=== PATIENT | female | born 1945 | race Caucasian/White ===

== ENCOUNTER → 2017-09-12 12:41 | Outpatient (CLI) | payer MEDICARE, BC ==
[2015-06-03 07:54] VITALS: BMI 29.9
[~2017-09-12 12:41] MED LIST: ALEVE220 MG PO; CAPTOPRIL25 MG PO; COZAAR25 MG PO; CYMBALTA30 MG PO; DIABETA5 MG PO; ESTRACE 0.5 MG0.5 MG PO; ESTRACE1 MG PO; FLOVENT DI50 MCG/DIS INH; GLUCOPHAGE500 MG PO; LASIX20 MG PO; LOMOTIL TABLET1 TAB PO; METOPROLOL TAR100 M1 PO; PRILOSEC20 MG PO; SORINE80 MG PO; SYNTHROID100 MCG PO; VITAMIN B-12100 MCG PO; VYTORIN 10-40 M1 TAB PO; ZOCOR40 MG PO
== END | disposition home or self-care (01) ==
LOC: D.MRI 12:41
DX: S83.241A Other tear of medial meniscus, current injury, right knee, initial encounter (principal)

== ENCOUNTER → 2018-01-30 11:16 | Outpatient (CLI) | payer MEDICARE, BC ==
[2015-06-03 07:54] VITALS: BMI 29.9
== END | disposition home or self-care (01) ==
LOC: D.CT 11:16
DX: R06.02 Shortness of breath (principal); R07.9 Chest pain, unspecified

== ENCOUNTER 2018-01-30 12:14 | Emergency (ER) | payer MEDICARE, BC ==
[2015-06-03 07:54] VITALS: BMI 29.9
[2018-01-30 13:11] LABS: ALBUMIN 3.2 g/dL (3.4-5.0); ALKALINE PHOSPHATASE 79 U/L (46-116); ALT (SGPT) 30 U/L (10-68); BILIRUBIN - TOTAL 0.89 mg/dL (0.2-1.3); CALC OSMOLALITY 277 mosm/kg (275-300); CALCIUM 8.3 mg/dL (8.5-10.1); CARBON DIOXIDE 26.9 mmol/L (21.0-32.0); CHLORIDE - SERUM 103 mmol/L (98-107); CREATININE - SERUM 0.8 mg/dL (0.6-1.3); GLUCOSE 133 mg/dL (74-106); POTASSIUM - SERUM 3.9 mmol/L (3.5-5.1); PROTEIN - SERUM 7.5 g/dL (6.4-8.2); SODIUM 138 mmol/L (136-145); UREA NITROGEN 12 mg/dL (7-18); eGFR NON AFRICAN AMERICAN 75 mL/min (90-120)
[2018-01-30 13:19] LABS: BASOPHILS 0.1 % (0-2); EOSINOPHILS 0.3 % (0-7); HEMOGLOBIN 10.7 g/dL (12-16); IMMATURE GRANULOCYTES 0.3 % (0-5); LYMPHOCYTES 15.1 % (15-50); MCH 29.5 pg (26.0-34.0); MCHC 31.5 g/dL (31.0-37.0); MCV 93.7 fL (80.0-100.0); MEAN PLATELET VOLUME 10.2 fL (7.4-10.4); MONOCYTES 12.8 % (2-11); NEUTROPHILS 71.4 % (40-80); PLATELET COUNT 208 10x3/uL (130-400); RBC 3.63 10x6/uL (4.00-5.40); RDW 14.1 % (11.5-14.5); WBC 15.8 10x3/uL (4.8-10.8)
[2018-01-30 13:27] LABS: CKMB 0.9 U/L (0.0-3.6); CREATINE KINASE 71 UL (21-215)
[2018-01-30 13:58] LABS: CHOL - HDL RATIO 2.4 ratio (2.3-4.1); LDL-HDL RATIO 1.1 ratio (1.5-3.5)
== END 2018-01-30 17:58 | disposition home or self-care (01) ==
LOC: D.ER 12:14
PROVIDERS: Emergency Medicine
DX: R07.9 Chest pain, unspecified (principal)

== ENCOUNTER → 2018-02-04 10:56 | Outpatient (CLI) | payer MEDICARE, BC ==
[2015-06-03 07:54] VITALS: BMI 29.9
== END | disposition home or self-care (01) ==
LOC: D.US 10:56
DX: I73.9 Peripheral vascular disease, unspecified (principal)

== ENCOUNTER → 2018-02-11 12:18 | Outpatient (CLI) | payer MEDICARE, BC ==
[2015-06-03 07:54] VITALS: BMI 29.9
== END | disposition home or self-care (01) ==
LOC: D.CT 12:18
DX: I73.9 Peripheral vascular disease, unspecified (principal); R93.6 Abnormal findings on diagnostic imaging of limbs

== ENCOUNTER 2019-01-17 08:00 | Outpatient (CLI) | payer MEDICARE, BC ==
[2015-06-03 07:54] VITALS: BMI 29.9
== END 2019-01-17 09:00 | disposition home or self-care (01) ==
LOC: D.MAMMO 08:00
PROVIDERS: ATTEND Family Medicine
DX: Z12.31 Encounter for screening mammogram for malignant neoplasm of breast (principal)

== ENCOUNTER → 2019-01-22 13:59 | Outpatient (CLI) | payer MEDICARE, BC ==
[2015-06-03 07:54] VITALS: BMI 29.9
== END | disposition home or self-care (01) ==
LOC: D.CT 13:59
PROVIDERS: ATTEND Clinical Nurse Specialist Family Health
DX: M54.12 Radiculopathy, cervical region (principal)

== ENCOUNTER → 2019-02-05 08:20 | Outpatient (CLI) | payer MEDICARE, BC ==
[2015-06-03 07:54] VITALS: BMI 29.9
== END | disposition home or self-care (01) ==
LOC: D.MRI 08:20
PROVIDERS: ATTEND Clinical Nurse Specialist Family Health
DX: M25.511 Pain in right shoulder (principal)

== ENCOUNTER 2019-03-13 08:40 | Day surgery (SDC) | payer MEDICARE, BC ==
[2019-03-11 11:36] LABS: APTT 32.3 SECONDS (22.8-39.4); INR 0.96 (0.85-1.17); PROTIME 12.3 SECONDS (11.6-15.0)
[2019-03-11 11:37] LABS: ANION GAP 11.2 mmol/L (8-16); CALCIUM 8.8 mg/dL (8.5-10.1); CARBON DIOXIDE 28.6 mmol/L (21.0-32.0); CREATININE - SERUM 0.8 mg/dL (0.6-1.3); POTASSIUM - SERUM 3.8 mmol/L (3.5-5.1)
[2019-03-11 11:48] LABS: HEMOGLOBIN 11.9 g/dL (12-16); MCH 29.2 pg (26.0-34.0); MCHC 32.2 g/dL (31.0-37.0); MCV 90.7 fL (80.0-100.0); MEAN PLATELET VOLUME 9.9 fL (7.4-10.4); RBC 4.08 10x6/uL (4.00-5.40); RDW 14.5 % (11.5-14.5); WBC 6.5 10x3/uL (4.8-10.8)
[~2019-03-13] VITALS: Ht 162.6 cm; Wt 81.6 kg
[~2019-03-13 08:40] MED LIST changes: +BAYER CHEWABLE81 MG PO; +ELIQUIS5 MG PO; +GLIMEPIRIDE1 MG PO; +LIPITOR40 MG PO; +OMEPRAZOLE CAP 20M PO; +PIOGLITAZONE TAB 30M PO; +VITAMIN E600 UNIT PO
[2019-03-13] MEDS ORDERED: TYLENOL W/CODEI1 TAB PO (09:51)
[2019-03-13] MEDS ORDERED: FLUTICASONE PRO16 GM NASAL (09:53)
[2019-03-13 09:57] VITALS: BP 123/60; Ht 162.6 cm; Wt 81.6 kg
[2019-03-13] MEDS ORDERED: HYDROCODON-ACE1 EA10 PO (12:39)
--- NOTE | 2019-03-13 15:05 | NUR ---
DISCHARGED HOME VIA WHEELCHAIR TO PRIVATE VEHICLE WITH SPOUSE
--- NOTE | 2019-03-24 07:51 | OP ---
PATIENT NAME: MIKEY SCHUSTER MEDICAL RECORD: [id number] :47 LOCATION:[facility] ADMISSION DATE: SURGEON: ROSARIO RYDER MD DATE OF OPERATION: 03/13/2019 PREOPERATIVE DIAGNOSIS: Rotator cuff tear of the right shoulder with impingement syndrome. POSTOPERATIVE DIAGNOSES: 1. Rotator cuff tear of the right shoulder with impingement syndrome. 2. Severe biceps tendinitis. PROCEDURES: 1. Arthroscopic rotator cuff repair of the right shoulder. 2. Arthroscopic biceps tenotomy of the right shoulder. 3. Arthroscopic distal clavicle excision done through separate incision -- 1 cm. 4. Arthroscopic subacromial decompression, acromioplasty, and bursectomy. SURGEON: Rosario Ryder MD ANESTHESIA: General. INTRAOPERATIVE COMPLICATIONS: None. SUMMARY OF PATHOLOGIC FINDINGS: Consistent with the preoperative diagnosis, the patient had a full thickness rotator cuff tear; however, not adequately visualized on the MRI. The patient had severe biceps tendinitis with near complete tearing of the biceps tendon. Therefore, it was tenotomized and tenodesed. OPERATIVE SUMMARY IN DETAIL: After obtaining the appropriate preoperative orthopedic surgery consent as well as anesthetic consultation, evaluation and clearance, the patient was brought to the operating room and placed on the operating table in supine position. After adequate general laryngeal mask airway was administered, the patient was placed in left lateral decubitus position. All pressure points well padded to include down leg peroneal pad as well as axillary roll. The patient was held firmly to the operating room table using the vacuum pack suction system. The patient's right upper extremity and shoulder were then prepped and draped in routine sterile fashion. The arm was held in the Arthrex traction boom at 30 degrees of forward flexion, 30 degrees of abduction, 10 pounds of traction laterally. Arthroscopy was established in the glenohumeral joint from the posterior portal. Anterior portal was established in the anterior safe interval. Diagnostic arthroscopy revealed the above findings. A transarthroscopic rotator cuff portal was created for debridement of the articular aspect of the rotator cuff back to viable rotator cuff elements. [place] tissue ablation system was utilized to complete the biceps tenotomy at the bicipital labral junction. Attention was then turned to the subacromial space. While in the subacromial space, the [place] tissue ablation surgery used to denude the undersurface of the acromion of all soft tissue elements and release the coracoacromial ligament. A 5-0 barrel bur was then used for acromioplasty at the level of the acromioclavicular joint and through a separate anterior portal under direct arthroscopic visualization, distal clavicle was excised for 1 cm. Attention was then returned to the rotator cuff and a single inverted #2 FiberTape was placed into the rotator cuff OPERATIVE REPORT [id number] MARIELYMIKEY LENA tear and anchored laterally with a 5.5 SwiveLock from Arthrex. Having completed this, arthroscopy portals were closed in routine interrupted fashion using 4-0 Prolene. Sterile dressings were applied. The patient was awakened and taken to recovery room in stable condition. All final needle and sponge counts were correct. TRANSINT:[id number] Voice Confirmation ID: [id number] DOCUMENT ID: [id number] BRITNI LOMBARDI, ROSARIO WING at 0751 CC: [id number] DICTATION DATE: 03/21/19 1211 DYE HOUSE VAT WORKER: 03/21/19 1548 [facility] 03/13/19 [facility] [address] [place] [address]
== END 2019-03-13 15:05 | disposition home or self-care (01) ==
LOC: D.OPS 08:40 → D.PAN 09:30 → D.OPS 10:45 → D.PAN 11:05 → D.OPS 11:05
PROVIDERS: Anesthesiology; ATTEND Orthopaedic Surgery
DX: M75.101 Unspecified rotator cuff tear or rupture of right shoulder, not specified as traumatic (principal); M75.41 Impingement syndrome of right shoulder; M75.21 Bicipital tendinitis, right shoulder

== ENCOUNTER → 2019-04-10 12:54 | Outpatient (CLI) | payer MEDICARE, BC ==
[2019-03-13 09:57] VITALS: BMI 30.9
[~2019-04-10 12:54] MED LIST changes: +FLUTICASONE PRO16 GM NASAL; +HYDROCODON-ACE1 EA10 PO; +TYLENOL W/CODEI1 TAB PO
== END | disposition home or self-care (01) ==
LOC: D.HCCARDIO 12:54
PROVIDERS: ATTEND Internal Medicine Cardiovascular Disease
DX: I34.0 Nonrheumatic mitral (valve) insufficiency (principal)

== ENCOUNTER 2019-05-29 14:39 | Inpatient (IN) | payer MEDICARE, BC ==
[~2019-05-29] VITALS: Ht 162.6 cm; Wt 81.6 kg
[2019-06-17] MEDS ORDERED: CIPRO250 MG PO (16:25)
[2019-06-18 13:03] LABS: BASOPHILS 0.1 % (0-2); EOSINOPHILS 1.5 % (0-7); HEMATOCRIT 35.4 % (36.0-48.0); HEMOGLOBIN 11.4 g/dL (12-16); IMMATURE GRANULOCYTES 0.1 % (0-5); LYMPHOCYTES 19.4 % (15-50); MCH 28.9 pg (26.0-34.0); MCHC 32.2 g/dL (31.0-37.0); MCV 89.6 fL (80.0-100.0); MEAN PLATELET VOLUME 9.2 fL (7.4-10.4); MONOCYTES 10.1 % (2-11); NEUTROPHILS 68.8 % (40-80); PLATELET COUNT 224 10x3/uL (130-400); RBC 3.95 10x6/uL (4.00-5.40); RDW 14.6 % (11.5-14.5); WBC 8.5 10x3/uL (4.8-10.8)
[2019-06-18 13:10] LABS: ANION GAP 12.4 mmol/L (8-16); CALCIUM 9.2 mg/dL (8.5-10.1); CARBON DIOXIDE 29.2 mmol/L (21.0-32.0); CREATININE - SERUM 0.9 mg/dL (0.6-1.3); POTASSIUM - SERUM 3.6 mmol/L (3.5-5.1)
[2019-06-18 13:17] LABS: APTT 34.1 SECONDS (22.8-39.4); INR 1.09 (0.85-1.17); PROTIME 13.6 SECONDS (11.6-15.0)
[2019-06-18 13:52] LABS: APPEARANCE CLEAR (CLEAR); BACTERIA FEW /hpf (NONE SEEN); BILIRUBIN NEGATIVE (NEGATIVE); COLOR STRAW (YELLOW); EPITHELIAL CELLS 0-5 /hpf (0-5); GLUCOSE NEGATIVE (NEGATIVE); KETONE NEGATIVE (NEGATIVE); NITRITE NEGATIVE (NEGATIVE); PROTEIN TRACE mg/dL (NEGATIVE); RED CELLS - URINE 0-5 /hpf (0-5); SPECIFIC GRAVITY 1.005 (1.005-1.020); UROBILINOGEN NORMAL (NORMAL); WHITE CELLS - URINE RARE /hpf (0-5)
[2019-06-23] VITALS (13 sets, daily range): BP systolic 64–131; BP diastolic 49–75; BMI 30.9
[2019-06-23 09:36] LABS: APPEARANCE HAZY (CLEAR); BILIRUBIN NEGATIVE (NEGATIVE); COLOR YELLOW (YELLOW); GLUCOSE NEGATIVE (NEGATIVE); KETONE NEGATIVE (NEGATIVE); NITRITE NEGATIVE (NEGATIVE); PROTEIN TRACE mg/dL (NEGATIVE); SPECIFIC GRAVITY 1.015 (1.005-1.020); UROBILINOGEN NORMAL (NORMAL)
[2019-06-23 09:37] LABS: BACTERIA FEW /hpf (NONE SEEN); EPITHELIAL CELLS 0-5 /hpf (0-5); HYALINE CAST RARE /lpf (NONE SEEN); MUCUS <1+ /lpf (NONE SEEN); RED CELLS - URINE 0-5 /hpf (0-5); WHITE CELLS - URINE OCC /hpf (0-5)
--- NOTE | 2019-06-23 09:52 | NUR ---
PLASMA BLADE SET TO 6/8 BOVIE PAD RIGHT FLANK [id number] EXP 09/01/20 PREPPED RIGHT LEG FROM TOURNIQUET TO TOES CIRCUMFERENTIALLY WITH HIBICLENS AND THEN CHLORAPREP
--- NOTE | 2019-06-23 13:59 | NUR ---
PULSE IN RLE IS BOUNDING. PATIENT REQUESTED AND RECEIVED A REG COKE. SHE DID NOT WAKE UP TO EAT SO I ALLOWED. PILLOW PLACED BEHIND LEFT LOWER BACK FOR COMFORT. DIL IN ROOM. CL IN REACH [facility]
--- NOTE | 2019-06-23 14:33 | NUR ---
IS DAVID SCHUSTER THE DAUGHTER IN LAW'S PHONE NUMBER. SAID THEY ARE NEIGHBORS AND TO CALL IF WE NEEDED THEM. CL IN REACH [facility].
--- NOTE | 2019-06-23 17:37 | NUR ---
ATTEMPTED TO GET DRAKE CARLSON FROM CENTRAL SUPPLY. CALF SIZE 16.5/LEG 20 IN. SCD'S ON. CL IN REACH. FAMILY IN ROOM. NO FURTHER NEEDS
--- NOTE | 2019-06-23 22:45 | NUR ---
BP 118/55 IN&OUT CATH DRAINED 800ML CLEAR, YELLOW URINE. PT REPORTS RELIEF. INFORMED SHE NEEDS TO VOID IN THE NEXT 6-8 HOURS. PT VERBALIZED UNDERSTANDING. WILL CONTINUE TO MONITOR.
[2019-06-24] VITALS: BP 107/45
[2019-06-24 06:06] LABS: HEMATOCRIT 28.7 % (36.0-48.0); MCH 28.3 pg (26.0-34.0); MCHC 31.4 g/dL (31.0-37.0); MCV 90.3 fL (80.0-100.0); MEAN PLATELET VOLUME 9.1 fL (7.4-10.4); RBC 3.18 10x6/uL (4.00-5.40); RDW 15.1 % (11.5-14.5); WBC 7.7 10x3/uL (4.8-10.8)
--- NOTE | 2019-06-24 07:00 | NUR ---
PT VOIDED IN BEDPAN W/O DIFICULTY. CPM IN USE. PAIN 04/14. WILL CONTINUE TO MONITOR.
[2019-06-24 09:38] VITALS: BP 102/45
[2019-06-24 09:40] VITALS: Ht 162.6 cm; Wt 81.6 kg
[2019-06-24 12:11] VITALS: BP 99/35
[2019-06-24 16:51] VITALS: BP 114/38
[2019-06-24 20:00] VITALS: BP 137/54
--- NOTE | 2019-06-24 20:30 | NUR ---
PT REQUESTS BEING REMOVED FROM CPM 1HOUR EARLY TO GO TO BATHROOM. PT AMBULATED TO RESTROOM WITH WALKER, MIN ASSIST. REPORTS PAIN AND NAUSEA AT THIS TIME. VOIDED CLEAR, YELLOW URINE. ASSISTED BACK TO BED, SCD AND PLEXI BOOT IN USE. ALSO REPORTS SHE FEELS LIKE SHE IS EXPERIENCING SOME ACID REFLUX. GIVEN SALTINE CRACKERS. DENIES FURTHER NEEDS AT THIS TIME, WILL CONTINUE TO MONITOR.
[2019-06-24 23:35] VITALS: BP 140/67
[2019-06-25] VITALS: BP 140/67
--- NOTE | 2019-06-25 02:28 | NUR ---
I have reviewed this patient and I concur with the Shift Assessment completed by the Licensed Practical Nurse today this shift.
[2019-06-25 04:00] VITALS: BP 143/53
[2019-06-25 06:17] LABS: HEMATOCRIT 25.9 % (36.0-48.0); HEMOGLOBIN 8.4 g/dL (12-16); MCH 28.6 pg (26.0-34.0); MCHC 32.4 g/dL (31.0-37.0); MEAN PLATELET VOLUME 9.3 fL (7.4-10.4); RBC 2.94 10x6/uL (4.00-5.40); RDW 15.2 % (11.5-14.5)
[2019-06-25 06:25] LABS: MCV 88.1 fL (80.0-100.0); WBC 10.8 10x3/uL (4.8-10.8)
[2019-06-25 08:30] VITALS: BP 136/49
[2019-06-25 12:45] VITALS: BP 127/58
--- NOTE | 2019-06-25 14:23 | NUR ---
PATIENT IS C/O PAIN, SHE STATES IT IS HER KNEE AND RIGHT ABOVE THE KNEE IS HURTING, SHE STATED THAT THE PAIN MEDICINE IS ONLY LASTING ABOUT 2 HOURS. WENT OVER MAR WITH HER AND SHE IS REQUESTING TORADOL, SPOKE WITH ANAMIKA ALVARENGA ABOUT IT. SANDRA ALVARENGA GAVE TORADOL VIA IV AND I HAVE NOTIFIED BRANDON BALDRERAMA TO MAKE HER AWARE.
--- NOTE | 2019-06-25 14:34 | MORECARE ---
CASE MANAGEMENT DISCHARGE SUMMARY PATIENT: MIKEY SCHUSTER UNIT: [id number] ADM DATE: 06/23/19 AGE: 73 : 46 SEX: F ROOM/BED: D.2212 AUTHOR: JADE DOBBS PHYSICIAN: REFERRING PHYSICIAN: ROSARIO RYDER MD DATE OF SERVICE: 06/25/19 Discharge Plan Patient Name: MIKEY SCHUSTER [facility] [facility] 1945 Planned Disposition: Home or Self Care Anticipated Discharge Date: Discharge Date: Expected LOS: Initial Reviewer: [email or web address] Initial Review Date: 06/23/2019 Generated: 06/25/19 3:34 pm DCPIA - Discharge Planning Initial Assessment Updated by [email or web address]: Julianne Mckay on 06/25/19 2:32 pm * Is the patient Alert and Oriented? Yes * How many steps to enter\exit or inside your home? * PCP ALONA * Pharmacy [facility] * Preadmission Environment Home with Family * ADLs Independent * Equipment Rolling Walker * List name and contact numbers for known caregivers / representatives who currently or will assist patient after discharge: LILLIAN () [phone] * Verbal permission to speak to the caregivers and representatives has been obtained from the patient. N/A * Community resources currently utilized None * Additional services required to return to the preadmission environment? Yes * Can the patient safely return to the preadmission environment? Yes * Has this patient been hospitalized within the prior 30 days at any hospital? No Patient Name: MIKEY SCHUSTER Page 31607 at 1434 All edits/amendments must be made on the electronic document DICTATION DATE: 06/25/19 1433 RADIO DISC JOCKEY: IZA 06/25/19 1433 RPT#: [id number] DC DATE: STATUS: ADM IN [facility] [address] [place] [address] END OF REPORT
--- NOTE | 2019-06-25 14:44 | MORECARE ---
CASE MANAGEMENT DISCHARGE SUMMARY PATIENT: MIKEY SCHUSTER UNIT: [id number] ADM DATE: 06/23/19 AGE: 73 : 46 SEX: F ROOM/BED: D.2212 AUTHOR: JADE DOBBS PHYSICIAN: REFERRING PHYSICIAN: ROSARIO RYDER MD DATE OF SERVICE: 06/25/19 Discharge Plan Patient Name: MIKEY SCHUSTER Facility: [facility]:[place] : 1945 Planned Disposition: Home or Self Care Anticipated Discharge Date: Discharge Date: Expected LOS: Initial Reviewer: [email or web address] Initial Review Date: 06/23/2019 Generated: 06/25/19 3:44 pm Comments DCP- Discharge Planning Updated by [email or web address]: Julainne Mckay on 06/25/19 1:[address] IMM was given and explained. DCP- Discharge Planning Updated by [email or web address]: Julianne Mckay on 06/25/19 1:[address] Patient Name: MIKEY SCHUSTER Admission Status: Elective Accout number: [id number] Admission Date: 06-23-2019 : 1945 Admission Diagnosis: Attending: ROSARIO RYDER Current LOS: 2 Anticipated DC Date: Planned Disposition: Home or Self Care Primary Insurance: MEDICARE A & B Discharge Planning Comments: CM met with patient to complete initial dc planning assessment. CM educated patient on the CM role and verbal consent given by patient to complete assessment. Patient lives at home with her where she is independent with her care . At discharge patient plans to return home and feels this is a safe discharge. CM discussed availability of home health, rehab services, and medical equipment. She has a walker, but will need a CPM, I will call dr Shearer office to see where the order has been placed. She would like to do OP PT at [facility] at Dr Helm's office. I have called and spoke with Amari, OP PT was made for SundayJun 12 at 3:00pm. Patient denied known discharge needs at this time. CM will continue to follow and will assist as needed with dc plans/needs. Windshield Repair Technician: Julianne Mckay DCPIA - Discharge Planning Initial Assessment Updated by [email or web address]: Julianne Mckay on 06/25/19 2:32 pm * Is the patient Alert and Oriented? Yes * How many steps to enter\exit or inside your home? * PCP ALONA * Pharmacy [facility] * Preadmission Environment Home with Family * ADLs Independent * Equipment Rolling Walker * List name and contact numbers for known caregivers / representatives who currently or will assist patient after discharge: LILLIAN () [phone] * Verbal permission to speak to the caregivers and representatives has been obtained from the patient. N/A * Community resources currently utilized None * Additional services required to return to the preadmission environment? Yes * Can the patient safely return to the preadmission environment? Yes * Has this patient been hospitalized within the prior 30 days at any hospital? No Last DP export: 06/25/19 1:34 p Patient Name: MIKEY SCHUSTER Page [phone] at 1444 All edits/amendments must be made on the electronic document DICTATION DATE: 06/25/191443 FOOT DOCTOR: IZA 06/25/191443 RPT#: [id number] DC DATE: STATUS: ADM IN [facility] [address] [place] [address] END OF REPORT
[2019-06-25 16:00] VITALS: BP 110/64
[2019-06-25 20:00] VITALS: BP 126/54
--- NOTE | 2019-06-25 20:15 | NUR ---
A/O X4 WITH NO ACUTE DISTRESS NOTED. ASSISTED TO BATHROOM AND REPOSITIONED IN BED. DENIES PAIN OR OTHER NEEDS AT THIS TIME. CONTINUE WITH PLAN OF CARE.
[2019-06-26 04:00] VITALS: BP 127/49
[2019-06-26 06:03] LABS: HEMATOCRIT 25.3 % (36.0-48.0); HEMOGLOBIN 8.2 g/dL (12-16); MCH 28.7 pg (26.0-34.0); MCHC 32.4 g/dL (31.0-37.0); MCV 88.5 fL (80.0-100.0); MEAN PLATELET VOLUME 9.4 fL (7.4-10.4); RBC 2.86 10x6/uL (4.00-5.40); RDW 15.2 % (11.5-14.5)
[2019-06-26 06:11] LABS: WBC 7.9 10x3/uL (4.8-10.8)
--- NOTE | 2019-06-26 07:15 | NUR ---
ALERT AND ORIENTED, RESTING IN BED. NO C/O PAIN. NO S/S OF ACUTE DISTRESS NOTED. PT DENIES ANY NEEDS. CALL LIGHT IN REACH. WILL CONTINUE TO MONITOR.
[2019-06-26 08:38] VITALS: BP 146/56
[2019-06-26 11:58] VITALS: BP 144/61
--- NOTE | 2019-06-26 12:34 | NUR ---
NUTRITION F/U 50% INTAKE BREAKFAST. PT UP TO CHAIR. MIRALAX ADDED 2/[address] FOLLOWING
--- NOTE | 2019-06-26 12:49 | OP ---
PATIENT NAME: MIKEY SCHUSTER MEDICAL RECORD: [id number] :47 LOCATION:[id number] ADMISSION DATE:06/23/19 SURGEON: ROSARIO RYDER MD DATE OF OPERATION: 06/23/2019 PREOPERATIVE DIAGNOSIS: Degenerative arthritis, right knee. POSTOPERATIVE DIAGNOSIS: Degenerative arthritis, right knee. PROCEDURE: Right total knee arthroplasty. SURGEON: Rosario Ryder MD CREW CLERK: NICHOL Gregory ANESTHESIA: General. INTRAOPERATIVE COMPLICATIONS: None. SUMMARY OF PATHOLOGIC FINDINGS: The patient had substantial osteoarthritis with all 3 compartments consistent with the preoperative radiographs. IMPLANTS USED: [place] Triathlon cemented total knee arthroplasty, size 4 femur, size 4 tibial baseplate, size 9-mm polyethylene insert and a 31 x 9 symmetric patella. OPERATIVE SUMMARY IN DETAIL: After obtaining the appropriate preoperative orthopedic surgery consent as well as anesthetic consultation, evaluation and clearance, the patient was brought to the operating room and placed on the operating table in supine position. After general laryngeal mask airway was administered, tourniquet was placed on the proximal aspect of the right lower extremity. Right lower extremity was then prepped and draped in routine sterile fashion. The leg was elevated and exsanguinated. Tourniquet was inflated to 350 mmHg. Midline incision was taken down for paramedian arthrotomy. Patella was everted, distal femur was exposed and the soft tissue excision was done in the usual fashion. An intramedullary guide hole was created for intramedullary guided cuts. Having completed this, the proximal tibia was completely exposed and soft tissue excision was then followed by creation of intramedullary guide hole for intramedullary guided cut of the proximal tibia. Having completed this, the appropriate measurements were taken. Distal chamfer cuts on the distal femur were made. Trials were put into place corresponding to the above implants, taken through range of motion and found to be stable in all planes. Final distal femoral preparations were followed by final proximal tibial preparations and then the arthritic surface of the patella was excised and prepared for resurfacing. The knee was then lavaged in pulsatile fashion to rid the capsule of all debris. Bone ends were then dried. Final components were cemented in place. All excess cement was removed and cement was allowed to harden. The knee was taken through range of motion and found to be stable in all planes, including patellofemoral tracking as well as medial or lateral anterior posterior stability. At this point, a gram of vancomycin, a gram and tobramycin were placed in the knee. Paramedian arthrotomy was then closed by Yariel Wiley with #1 Ethibond followed by #1 Vicryl, 2-0 Vicryl, and skin antonio. Sterile dressings were applied. Tourniquet was deflated. The patient was awakened and taken to the recovery room in stable condition. All final needle and sponge counts were correct. OPERATIVE REPORT [id number] MIKEY SCHUSTER TRANSINT:[id number] Voice Confirmation ID: [id number] DOCUMENT ID: [id number] BRITNI OLMBARDI, ROSARIO WING at 1249 CC: [id number] DICTATION DATE: 06/26/19 1113 SILVICULTURE TEACHER: 06/26/19 1230 ADM IN [place] [id number] [place] [id number]
[2019-06-26] MEDS ORDERED: HYDROCODON-ACE1 EA10 PO (16:09)
[2019-06-26 16:34] VITALS: BP 119/48
--- NOTE | 2019-06-26 17:26 | NUR ---
PT DISCHARGED HOME VIA WHEELCHAIR WITH SPOUSE. DISCONTINUED IV, CATHETER TIP INTACT. WENT OVER DISCHARGE INSTRUCTIONS WITH PATIENT, PATIENT VERBALIZED UNDERSTANDING. CHANGED DRESSING ON RIGHT KNEE WITH AQUACEL PER PHYSICIAN ORDERS. PT DENIES ANY NEEDS.
--- NOTE | 2019-06-30 12:08 | MORECARE ---
CASE MANAGEMENT DISCHARGE SUMMARY PATIENT: MIKEY SCHUSTER UNIT: [id number] ADM DATE: 06/23/19 AGE: 73 : 46 SEX: F ROOM/BED: D.2212 AUTHOR: DILIA,DOC PHYSICIAN: REFERRING PHYSICIAN: ROSARIO RYDER MD DATE OF SERVICE: 06/30/19 Discharge Plan Patient Name: MIKEY SCHUSTER Facility: [facility]:[place] : 1945 Planned Disposition: Home or Self Care Anticipated Discharge Date: Discharge Date: 06/26/2019 Expected LOS: Initial Reviewer: [email or web address] Initial Review Date: 06/23/2019 Generated: 06/30/19 1:08 pm DCP- Discharge Planning Updated by [email or web address]: Julianne Mckay on 06/25/19 1:[address] IMM was given and explained. DCP- Discharge Planning Updated by [email or web address]: Julianne Mckay on 06/25/19 1:[address] Patient Name: MIKEY SCHUSTER Admission Status: Elective Accout number: [id number] Admission Date: 06-23-2019 : 1945 Admission Diagnosis: Attending: ROSARIO RYDER Current LOS: 2 Anticipated DC Date: Planned Disposition: Home or Self Care Primary Insurance: MEDICARE A & B Discharge Planning Comments: CM met with patient to complete initial dc planning assessment. CM educated patient on the CM role and verbal consent given by patient to complete assessment. Patient lives at home with her where she is independent with her care . At discharge patient plans to return home and feels this is a safe discharge. CM discussed availability of home health, rehab services, and medical equipment. She has a walker, but will need a CPM, I will call dr Shearer office to see where the order has been placed. She would like to do OP PT at [facility] at Dr Helm's office. I have called and spoke with Amari, OP PT was made for SundayJun 12 at 3:00pm. Patient denied known discharge needs at this time. CM will continue to follow and will assist as needed with dc plans/needs. Production Operator: Julianne Mckay DCPIA - Discharge Planning Initial Assessment Updated by [email or web address]: Julianne Mckay on 06/25/19 2:32 pm * Is the patient Alert and Oriented? Yes * How many steps to enter\exit or inside your home? * PCP AL[facility] * Pharmacy [place] * Preadmission Environment Home with Family * ADLs Independent * Equipment Rolling Walker * List name and contact numbers for known caregivers / representatives who currently or will assist patient after discharge: LILLIAN () [phone] * Verbal permission to speak to the caregivers and representatives has been obtained from the patient. N/A * Community resources currently utilized None * Additional services required to return to the preadmission environment? Yes * Can the patient safely return to the preadmission environment? Yes * Has this patient been hospitalized within the prior 30 days at any hospital? No Coverage Notice Reviewer: [email or web address] - Julianne Mckay Notice Issued Date-Time: 06/25/2019 14:00 Notice Type: IM Discharge Notice Notice Delivered To: Patient Relationship to Patient: Echocardiography Tech Name: Delivery Method: HAND - Hand Delivered Naomi Days: Prior Verbal Notification: Recipient Understood Notice: Yes Recipient Signature: Yes Med Rec Note Co-signed by Attending: Coverage Notice Comment: Last DP export: 06/25/19 1:44 p Patient Name: MIKEY SCHUSTER Page 31526 at 1208 All edits/amendments must be made on the electronic document DICTATION DATE: 06/30/19 1208 WINDOW/DISTRIBUTION CLERK: ZIA 06/30/19 1208 RPT#: [id number] DC DATE:06/26/19 STATUS: DIS IN [facility] [address] [place] [address] END OF REPORT
== END 2019-06-26 17:28 | disposition home or self-care (01) | DRG 470 ==
LOC: D.SDCHOLD 06-18 10:00 → D.MS 06-23 07:38 → D.SDCHOLD 06-23 09:15 → D.MS 06-23 10:41
PROVIDERS: ADMIT Orthopaedic Surgery; ATTEND Orthopaedic Surgery
PROC: 0SRC0J9 Replacement of Right Knee Joint with Synthetic Substitute, Cemented, Open Approach (ICD-10-PCS; principal; 2019-06-23 09:30)
DX: M17.11 Unilateral primary osteoarthritis, right knee (principal); D62 Acute posthemorrhagic anemia; E11.9 Type 2 diabetes mellitus without complications; E78.5 Hyperlipidemia, unspecified; I48.91 Unspecified atrial fibrillation

== ENCOUNTER → 2019-06-05 17:46 | Outpatient (CLI) | payer MEDICARE, BC ==
[2019-03-13 09:57] VITALS: BMI 30.9
== END | disposition home or self-care (01) ==
LOC: D.LABREF 17:46
PROVIDERS: ATTEND Orthopaedic Surgery
DX: M17.11 Unilateral primary osteoarthritis, right knee (principal)

== ENCOUNTER 2019-07-11 20:25 | Inpatient (IN) | payer MEDICARE, BC ==
[~2019-07-11] VITALS: Ht 162.6 cm; Wt 78.5 kg
[~2019-07-11 20:25] MED LIST changes: +CIPRO250 MG PO
[2019-07-11 22:24] LABS: BASOPHILS 0.1 % (0-2); EOSINOPHILS 0.1 % (0-7); HEMATOCRIT 28.9 % (36.0-48.0); HEMOGLOBIN 9.3 g/dL (12-16); IMMATURE GRANULOCYTES 0.3 % (0-5); LYMPHOCYTES 5.3 % (15-50); MCH 28.2 pg (26.0-34.0); MCHC 32.2 g/dL (31.0-37.0); MCV 87.6 fL (80.0-100.0); MEAN PLATELET VOLUME 9.9 fL (7.4-10.4); MONOCYTES 7.3 % (2-11); NEUTROPHILS 86.9 % (40-80); PLATELET COUNT 230 10x3/uL (130-400); RDW 16.3 % (11.5-14.5); WBC 15.7 10x3/uL (4.8-10.8)
[2019-07-11 22:33] VITALS: BP 123/57; BMI 29.7
[2019-07-11 22:43] LABS: ALBUMIN 3.1 g/dL (3.4-5.0); ANION GAP 15.5 mmol/L (8-16); BILIRUBIN - TOTAL 0.32 mg/dL (0.2-1.3); C-REACTIVE PROTEIN 1.1 mg/dL (0.0-0.9); CALCIUM 8.5 mg/dL (8.5-10.1); CARBON DIOXIDE 27.2 mmol/L (21.0-32.0); CREATININE - SERUM 1.1 mg/dL (0.6-1.3); POTASSIUM - SERUM 3.7 mmol/L (3.5-5.1); PROTEIN - SERUM 7.1 g/dL (6.4-8.2)
[2019-07-12 04:00] VITALS: BP 137/50
--- NOTE | 2019-07-12 07:02 | NUR ---
PATIENT PAIN NOT RELIEVED AND NOT IMPROVING WITH MORPHINE SPECIALTIES OPERATOR. PAGED DR. RYDER.
[2019-07-12 08:13] VITALS: BP 123/49
[2019-07-12 08:40] LABS: HEMATOCRIT 28.7 % (36.0-48.0); HEMOGLOBIN 9.2 g/dL (12-16); MCH 28.7 pg (26.0-34.0); MCHC 32.1 g/dL (31.0-37.0); MCV 89.4 fL (80.0-100.0); MEAN PLATELET VOLUME 9.1 fL (7.4-10.4); PLATELET COUNT 377 10x3/uL (130-400); RBC 3.21 10x6/uL (4.00-5.40); RDW 16.4 % (11.5-14.5); WBC 9.4 10x3/uL (4.8-10.8)
--- NOTE | 2019-07-12 08:40 | NUR ---
PATIENT GIVEN TORADOL ORDERED BY PHYSICIAN FOR PAIN. IV INTACT. NO COMPLAINTS OR OR SIGNS OF DISTRESS. CALL LIGHT WITHIN REACH.
[2019-07-12 08:46] LABS: ANION GAP 10.7 mmol/L (8-16); CALCIUM 8.8 mg/dL (8.5-10.1); CREATININE - SERUM 0.9 mg/dL (0.6-1.3); POTASSIUM - SERUM 3.7 mmol/L (3.5-5.1)
[2019-07-12 09:43] LABS: ERYTHROCYTE SEDIMENTATION RATE 57 mm/hr (0-30)
[2019-07-12 11:38] VITALS: Ht 162.6 cm; Wt 78.5 kg
--- NOTE | 2019-07-12 12:00 | NUR ---
PATIENT IN BED WITH NO COMPLAINTS. IV INTACT. NO COMPLAINTS CALL LIGHT WITHIN REACH.
[2019-07-12 13:21] VITALS: BP 110/50
[2019-07-12 16:11] VITALS: BP 116/39
[2019-07-12 16:41] LABS: APPEARANCE CLEAR (CLEAR); BILIRUBIN NEGATIVE (NEGATIVE); COLOR YELLOW (YELLOW); GLUCOSE NEGATIVE (NEGATIVE); KETONE NEGATIVE (NEGATIVE); NITRITE NEGATIVE (NEGATIVE); PROTEIN NEGATIVE (NEGATIVE); SPECIFIC GRAVITY 1.015 (1.005-1.020); UROBILINOGEN NORMAL (NORMAL)
[2019-07-12 16:43] LABS: BACTERIA FEW /hpf (NONE SEEN); EPITHELIAL CELLS 0-5 /hpf (0-5); RED CELLS - URINE 0-5 /hpf (0-5)
--- NOTE | 2019-07-12 16:50 | NUR ---
PATIENT RECIEVED 1/2 OF 1ST ENEMA. NO RESULTS AT THIS TIME. CLEAR WATER CAME OUT INTO BED MELENDEZ. EXPLAINED TO PATIENT THAT IF HE WASNTS TO WE CAN TRY AGAIN. VERBALIZED UNDERSTANDING. STATED HE WOULD LET MED KNOW.
--- NOTE | 2019-07-12 18:50 | NUR ---
PATIENT IN BED ON PHONE AT THIS TIME. IV INTACT. NO COMPLAINTS OR SIGNS OF DISTRESS. CALL LIGHT WITHIN REACH.
[2019-07-12 19:55] VITALS: BP 113/44
--- NOTE | 2019-07-12 19:58 | NUR ---
PATIENT IN BED RESTING WITH NO STATED OR NOTED NEEDS CALL LIGHT AND WATER IN REACH. ALERT AND ORENTED ABLE TO VOICE NEEES AND WANTS TO STAFF. MORPHINE AUTOMATED EQUIPMENT ENGINEER TECHNICIAN IN PLACE. IV TO LEFT HAND WITH NS. ON ROOM AIR.
[2019-07-13] VITALS (7 sets, daily range): BP systolic 102–133; BP diastolic 40–51
--- NOTE | 2019-07-13 06:34 | NUR ---
PATIENT REFUSED ENEMA X 2 THIS SHIFT
--- NOTE | 2019-07-13 08:45 | NUR ---
PATIENT IN BED WITH IV INTACT. SITTING UP IN BED WITH NO COMPLAINTS. CALL LIGHT WITHIN REACH.
--- NOTE | 2019-07-13 18:45 | NUR ---
PATIENT SITTING UP IN BED WITH FAMILY AT BEDSIDE. IV INTACT. NO COMPLAINTS. CALL LIGHT WITHIN REACH.
--- NOTE | 2019-07-13 20:00 | NUR ---
ALERT AND ORENTED ABLE TO VOICE NEEDS AND WANTS TO STAFF. CALL LIGHT AND WATER IN REACH. UP AT JAYA DRESSING TO RIGHT KNEE IN PLACE. LEFT FR WITH NS AT [address] PATEN. NO NEEDS NOTED OR STATED
[2019-07-14 04:00] VITALS: BP 117/43
--- NOTE | 2019-07-14 07:15 | NUR ---
AWAKE AND ALERT. ORIENTED X3. NO C/O AT THIS TIME. REPORTS PAIN IMPROVED WITH USE OF UNIT SUPERVISOR. LUNGS ARE CLEAR BILATERALLY, NO COUGH NOTED. REPORTS USING IS WA. SKIN IS INTACT WITHOUT REDNESS EXCEPT INCISION TO RIGHT KNEE WHICH IS CLEAN AND DRY, WELL APPROXIMATED BUT SOME WARMTH NOTED TO AREA. IV TO LEFT HAND IS PATETNW TIHOUT REDNESS AT INSERTION SITE. DENIES NEEDS.
[2019-07-14 08:00] VITALS: BP 137/51
--- NOTE | 2019-07-14 09:40 | NUR ---
AMBULATED WITH PT IN HALLWAY. REQUESTED AND GIVEN ONE OXYCODONE PO FOR C/O RIGHT KNEE PAIN LEVEL 6. WILL MONITOR.
[2019-07-14 12:32] VITALS: BP 146/57
[2019-07-14] MEDS ORDERED: HYDROCODON-ACE1 EAC7 PO (12:53)
--- NOTE | 2019-07-14 14:07 | NUR ---
REQUESTED AND GIVEN ONE HYDROCODONE PO FOR C/O RIGHT KNEE PAIN LEVEL 7. WILL MONITOR. IV TO LEFT HAND D/C WITH CATHETER INTACT.
--- NOTE | 2019-07-14 14:16 | MORECARE ---
CASE MANAGEMENT DISCHARGE SUMMARY PATIENT: MIKEY SCHUSTER UNIT: [id number] ADM DATE: 07/12/19 AGE: 73 : 46 SEX: F ROOM/BED: D.2206 AUTHOR: JADE DOBBS PHYSICIAN: REFERRING PHYSICIAN: ROSARIO RYDER MD DATE OF SERVICE: 07/14/19 Discharge Plan Patient Name: MIKEY SCHUSTER Facility: [facility]:[place] : 1945 Planned Disposition: Home or Self Care Anticipated Discharge Date: Discharge Date: Expected LOS: Initial Reviewer: [email or web address] Initial Review Date: 07/11/2019 Generated: 07/14/19 3:16 pm Patient Name: MIKEY SCHUSTER Page [phone] at 1416 All edits/amendments must be made on the electronic document DICTATION DATE: 07/14/19 1415 CYLINDER SANDER OPERATOR: IZA 07/14/19 1415 RPT#: [id number] DC DATE: STATUS: ADM IN [facility] [address] [place] [address] END OF REPORT
--- NOTE | 2019-07-14 14:36 | MORECARE ---
CASE MANAGEMENT DISCHARGE SUMMARY PATIENT: MIKEY SCHUSTER UNIT: [id number] ADM DATE: 07/12/19 AGE: 73 : [birth year] SEX: F ROOM/BED: D.2206 AUTHOR: JADE DOBBS PHYSICIAN: REFERRING PHYSICIAN: ROSARIO RYDER MD DATE OF SERVICE: 07/14/19 Discharge Plan Patient Name: MIKEY SCHUSTER Facility: [facility]:[place] : 1945 Planned Disposition: Home or Self Care Anticipated Discharge Date: Discharge Date: Expected LOS: Initial Reviewer: [email or web address] Initial Review Date: 07/11/2019 Generated: 07/14/19 3:36 pm Comments DCP- Discharge Planning Updated by [email or web address]: Julianne Mckay on 07/14/19 1:[address] Patient Name: MIKEY SCHUSTER Admission Status: ER Accout number: [id number] Admission Date: 07-12-2019 : 1945 Admission Diagnosis:PAIN DUE TO INTERNAL ORTHOPEDIC PROSTH DEV/GRFT, INIT Attending: ROSARIO RYDER Current LOS: 2 Anticipated DC Date: Planned Disposition: Home or Self Care Primary Insurance: MEDICARE A & B Discharge Planning Comments: MET WITH PATIENT TO ASSESS DSICHARGE PLANNING NEEDS. PATIENT STATED THAT NOTHING HAS CHANGED SINCE SHE WAS HERE LAST TIME, SHE IS STILL GOING TO [facility] AT DR VIRK OFFICE AND HAS HER APPOINTMENT . SHE HAS ALL DME NEEDED AND HER WILL BE DRIVING HER HOME TODAY. DENIES ANY OTHER NEEDS AT THIS TIME, Tobacco Stripper Hand: Julianne Mckay Last DP export: 07/14/19 1:16 pm Patient Name: MIKEY SCHUSTER Page 26413 at 1436 All edits/amendments must be made on the electronic document DICTATION DATE: 07/14/191435 CHHA: IZA 07/14/19 143 RPT#: [id number] DC DATE: STATUS: ADM IN [facility] [address] [place] [address] END OF REPORT
--- NOTE | 2019-07-14 14:58 | NUR ---
DISCHARGED TO HOME AMBULATORY WITH FRIEND. DISCHARGE INSTRUCTIONSGIVEN BOTH VERBALLY AND WRITTEN. ALL QUESTIONS ANSWERED. PATIENT VERBALIZED UNDERSTANDING OF SAME. NEEDED PRESCRIPTIONS GIVEN TO PATIENT. ALL BELONGINGS WITH PATIENT.
--- NOTE | 2019-07-15 09:52 | MORECARE ---
CASE MANAGEMENT DISCHARGE SUMMARY PATIENT: MIKEY SCHUSTER UNIT: [id number] ADM DATE: 07/12/19 AGE: 73 : 47 SEX: F ROOM/BED: D.2206 AUTHOR: JADE DOBBS PHYSICIAN: REFERRING PHYSICIAN: ROSARIO RYDER MD DATE OF SERVICE: 07/15/19 Discharge Plan Patient Name: MIKEY SCHUSTER Facility: [facility]:[place] : 1945 Planned Disposition: Home or Self Care Anticipated Discharge Date: Discharge Date: 07/14/2019 Expected LOS: 0 Initial Reviewer: [email or web address] Initial Review Date: 07/11/2019 Generated: 07/15/19 10:51 am Comments DCP- Discharge Planning Updated by [email or web address]: Julianne Mckay on 07/14/19 1:[address] Patient Name: MIKEY SCHUSTER Admission Status: ER Accout number: [id number] Admission Date: 07-12-2019 : 1945 Admission Diagnosis:PAIN DUE TO INTERNAL ORTHOPEDIC PROSTH DEV/GRFT, INIT Attending: ROSARIO RYDER Current LOS: 2 Anticipated DC Date: Planned Disposition: Home or Self Care Primary Insurance: MEDICARE A & B Discharge Planning Comments: MET WITH PATIENT TO ASSESS DSICHARGE PLANNING NEEDS. PATIENT STATED THAT NOTHING HAS CHANGED SINCE SHE WAS HERE LAST TIME, SHE IS STILL GOING TO [facility] AT DR [facility] OFFICE AND HAS HER APPOINTMENT . SHE HAS ALL DME NEEDED AND HER WILL BE DRIVING HER HOME TODAY. DENIES ANY OTHER NEEDS AT THIS TIME, Collaborative Physician: Julianne Mckay Last DP export: 07/14/19 1:36 pm Patient Name: MIKEY SCHUSTER Page [id number] at 0952 All edits/amendments must be made on the electronic document DICTATION DATE: 07/15/19950 WINDOWS SERVER ADMINISTRATOR: IZA 07/15/19950 RPT#: [id number] DC DATE:07/14/19 STATUS: DIS IN [facility] [address] [place] [address] END OF REPORT
== END 2019-07-14 15:02 | disposition home or self-care (01) | DRG 561 ==
LOC: D.ER 20:25 → OBSVTIME 22:09 → D.MS 22:09
PROVIDERS: Family Medicine; ADMIT Orthopaedic Surgery; ATTEND Orthopaedic Surgery
DX: T84.84XA Pain due to internal orthopedic prosthetic devices, implants and grafts, initial encounter (principal); M25.461 Effusion, right knee; E11.9 Type 2 diabetes mellitus without complications; E03.9 Hypothyroidism, unspecified

== ENCOUNTER → 2019-08-01 10:00 | Outpatient (CLI) | payer MEDICARE, BC ==
[2019-07-12 11:38] VITALS: BMI 29.7
[~2019-08-01 10:00] MED LIST changes: +HYDROCODON-ACE1 EAC7 PO
== END | disposition home or self-care (01) ==
LOC: D.MRI 10:00
PROVIDERS: ATTEND Clinical Nurse Specialist Family Health
DX: M54.16 Radiculopathy, lumbar region (principal)

== ENCOUNTER → 2019-08-20 15:25 | Outpatient (CLI) | payer MEDICARE, BC ==
[2019-07-12 11:38] VITALS: BMI 29.7
== END | disposition home or self-care (01) ==
LOC: D.US 15:25
PROVIDERS: ATTEND Family Medicine
DX: R60.0 Localized edema (principal)

== ENCOUNTER → 2019-09-03 16:46 | Outpatient (CLI) | payer MEDICARE, BC ==
[2019-07-12 11:38] VITALS: BMI 29.7
[2019-09-03 17:18] LABS: ANION GAP 11.2 mmol/L (8-16); CALCIUM 8.9 mg/dL (8.5-10.1); CARBON DIOXIDE 34.3 mmol/L (21.0-32.0); POTASSIUM - SERUM 3.5 mmol/L (3.5-5.1)
== END | disposition home or self-care (01) ==
LOC: D.LABREF 16:46
PROVIDERS: ATTEND Nurse Practitioner Adult Health
DX: R60.0 Localized edema (principal)

== ENCOUNTER → 2020-05-18 10:31 | Outpatient (CLI) | payer MEDICARE, BC ==
[2019-07-12 11:38] VITALS: BMI 29.7
== END | disposition home or self-care (01) ==
LOC: D.MRI 10:31
PROVIDERS: ATTEND Orthopaedic Surgery
DX: S83.232A Complex tear of medial meniscus, current injury, left knee, initial encounter (principal)

== ENCOUNTER 2020-08-05 05:40 | Day surgery (SDC) | payer MEDICARE, BC ==
[2020-08-03 09:44] LABS: HEMATOCRIT 35.3 % (36.0-48.0); HEMOGLOBIN 10.9 g/dL (12-16); MCH 26.5 pg (26.0-34.0); MCHC 30.9 g/dL (31.0-37.0); MCV 85.9 fL (80.0-100.0); MEAN PLATELET VOLUME 8.8 fL (7.4-10.4); RBC 4.11 10x6/uL (4.00-5.40); RDW 15.8 % (11.5-14.5)
[2020-08-03 10:04] LABS: ANION GAP 8.7 mmol/L (8-16); CALCIUM 9.5 mg/dL (8.5-10.1); CARBON DIOXIDE 33.6 mmol/L (21.0-32.0); CREATININE - SERUM 0.9 mg/dL (0.6-1.3); POTASSIUM - SERUM 3.3 mmol/L (3.5-5.1)
[~2020-08-05] VITALS: Ht 162.6 cm; Wt 79.4 kg
[~2020-08-05 05:40] MED LIST changes: +BUMEX2 MG PO
[2020-08-05] MEDS ORDERED: VITAMIN D400 UNI1 PO (06:43)
[2020-08-05 06:44] VITALS: BP 110/73; Ht 162.6 cm; Wt 79.4 kg
[2020-08-05] MEDS ORDERED: HYDROCODON-ACE1 EA10 PO (08:31)
--- NOTE | 2020-08-05 17:35 | NUR ---
IV D/C'D WITH CANNULA INTACT, PRESSURE HELD AND DRSG PLACED. DISCHARGE INSTRUCTIONS GIVEN AND PT VERBALIZED AN UNDERSTANDING.. STATES PAIN IS TOLERABLE AND RESPONSIVE TO NORCO. DISCHARGED IN STABLE CONDITION.
--- NOTE | 2020-08-26 11:33 | OP ---
PATIENT NAME: MIKEY SCHUSTER MEDICAL RECORD: [id number] :[birth year] LOCATION:D.OPS ADMISSION DATE: SURGEON: ROSARIO RYDER MD DATE OF OPERATION: 08/05/2020 PREOPERATIVE DIAGNOSES: 1. Medial meniscus tear of the left knee. 2. Lateral meniscus tear of the left knee. POSTOPERATIVE DIAGNOSES: 1. Medial meniscus tear of the left knee. 2. Lateral meniscus tear of the left knee. PROCEDURE: 1. Arthroscopic partial medial meniscectomy of the left knee. 2. Arthroscopic partial lateral meniscectomy of the left knee. SURGEON: Rosario Ryder MD ANESTHESIA: General. INTRAOPERATIVE COMPLICATIONS: None. SUMMARY OF PATHOLOGIC FINDINGS: Ironically, this is a 74-year-old patient had very minimal arthritis. She did have complex tears of both the medial and lateral menisci as described above. 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 OPERATIVE SUMMARY IN DETAIL: After obtaining the appropriate preoperative orthopedic surgery consent as well as anesthetic consultation, evaluation and clearance, the patient was brought to the operating room and placed on the operating table in supine position. After adequate general laryngeal mask was administered, tourniquet was placed about the proximal aspect of left lower extremity. Left lower extremity was then prepped and draped in routine sterile fashion. The leg was elevated and exsanguinated, tourniquet inflated to 350 mmHg. At this point, the appropriate timeout was taken and agreed upon by all given the patient's unique identifiers. Routine inferolateral portal was established followed by superomedial portal and inferomedial portal. Diagnostic arthroscopy did reveal the above findings. Attention was first turned to the medial meniscus. Combination of meniscotome as well as arthroscopic resector were utilized to debride the medial meniscus back to stable meniscal elements and again the medial compartment was relatively free of pathology except for the meniscal tear. The leg was then placed in the [id number] position and the lateral meniscal tear was just lateral to the popliteal hiatus, was debrided back to stable meniscal elements without substantial meniscal loss. Having completed this, the knee was insufflated with 30 mL of 0.25% Marcaine with epinephrine, 40 mg of Depo-Medrol. Arthroscopy portals were closed in routine interrupted fashion using 4-0 Prolene. Sterile dressing was applied. Tourniquet was deflated. The patient was awakened and taken to the recovery room in stable condition. All final needle and sponge counts were correct. TRANSINT:[id number] Voice Confirmation ID: [id number] DOCUMENT ID: [id number] OPERATIVE REPORT [id number] MIKEY SCHUSTER MD, ROSARIO WING at 1133 CC: [id number] DICTATION DATE: 08/26/2042 SUPERVISOR MOLDING: 08/26/20 1023 [facility] 08/05/20 [id number] [place] [address]
== END 2020-08-05 10:50 | disposition home or self-care (01) ==
LOC: D.OPS 05:40 → D.PAN 11:45
PROVIDERS: Anesthesiology; ATTEND Orthopaedic Surgery
DX: S83.242A Other tear of medial meniscus, current injury, left knee, initial encounter (principal); S83.282A Other tear of lateral meniscus, current injury, left knee, initial encounter; X58.XXXA Exposure to other specified factors, initial encounter; M25.562 Pain in left knee; M17.12 Unilateral primary osteoarthritis, left knee

== ENCOUNTER 2021-01-10 10:00 | Outpatient (CLI) | payer MEDICARE, BC ==
[2020-08-05 06:44] VITALS: BMI 30.1
[~2021-01-10 10:00] MED LIST changes: +VITAMIN D400 UNI1 PO
== END 2021-01-10 23:59 | disposition home or self-care (01) ==
LOC: D.MAMMO 10:00
PROVIDERS: ATTEND Family Medicine
DX: R92.8 Other abnormal and inconclusive findings on diagnostic imaging of breast (principal)